=== PATIENT | male | born 2000 | race Caucasian/White ===

== ENCOUNTER 2018-06-08 04:08 | Emergency (ER) | payer OTHER ==
[2018-06-08 04:15] VITALS: BP 132/84
[2018-06-08] MEDS ORDERED: PENICILLIN V POTASSIUM 500 MG TABLET PO ONE (04:31)
--- NOTE | 2018-06-08 04:33 | ER Document Report ---
ED General - General Chief Complaint: Sore Throat Stated Complaint: SORE THROAT Time Seen by Provider: 06/08/18 04:24 Notes: Patient is a 17-year-old male presents with complaint of a sore throat. He says he has also had some fevers over last 24 hours. He has some pressure behind his left ear as well. He says his girlfriend was recently sick but not sure with what. He denies abdominal pain or vomiting. No neck stiffness. No other complaints. No difficulty breathing or swallowing. - Related Data Allergies/Adverse Reactions: No Known Allergies Allergy (Unverified 06/08/18 04:10) Past Medical History - Social History Smoking Status: Unknown if Ever Smoked Frequency of alcohol use: None Drug Abuse: None Family History: Reviewed & Not Pertinent Patient has suicidal ideation: No Patient has homicidal ideation: No Renal/ Medical History: Denies: Hx Peritoneal Dialysis Review of Systems - Review of Systems Notes: My Normal Review Basic REVIEW OF SYSTEMS: CONSTITUTIONAL : Fever. EENT: Sore throat RESPIRATORY: Denies cough, cold, or chest congestion. Denies shortness of breath, difficulty breathing, or wheezing. GASTROINTESTINAL: Denies abdominal pain. Denies nausea, vomiting, or diarrhea. MUSCULOSKELETAL: Denies neck or back pain or joint pain or swelling. SKIN: Denies rash or skin lesions. NEUROLOGICAL: Denies altered mental status or loss of consciousness. Denies headache. ALL OTHER SYSTEMS REVIEWED AND NEGATIVE. Physical Exam - Vital signs Vitals: Temp Pulse Resp BP Pulse Ox 100.5 F H 95 H 14 132/84 H 100 06/08/18 04:14 06/08/18 04:14 06/08/18 04:14 06/08/18 04:14 06/08/18 04:14 - Notes Notes: General Appearance: Well nourished, alert, cooperative, no acute distress, mild obvious discomfort. Patient speaks well without hoarse voice. He is able secretions well without any signs of difficulty swallowing or airway compromise. Vitals: reviewed, See vital signs table. Head: no swelling or tenderness to the head Eyes: PERRL, EOMI, Conjuctiva clear Mouth: No decreasd moisture Throat: Bilateral tonsillar inflammation and erythema with exudates along the left tonsil. Uvula is midline. No peritonsillar swelling. Neck: Supple, no neck tenderness, No thyromegaly Lungs: No wheezing, No rales, No rhonci, No accessory muscle use, good air exchange bilaterally. Heart: Normal rate, Regular rythm, No murmur, no rub Skin: warm, dry, appropriate color, no rash Neuro: speech clear, oriented x 3, normal affect, responds appropriately to questions. Course - Re-evaluation Re-evalutation: 06/08/18 06:52 Patient's findings consistent with strep pharyngitis. I have prescribed penicillin. I talked him at length about peritonsillar abscess. Currently has no evidence of peritonsillar abscess but informed him of the signs and symptoms of this and to return to ER immediately if he has any symptoms or signs. Patient agrees with plan will be discharged home. Dictation of this chart was performed using voice recognition software; therefore, there may be some unintended grammatical errors. - Vital Signs Vital signs: Temp Pulse Resp BP Pulse Ox 100.5 F H 95 H 14 132/84 H 100 06/08/18 04:14 06/08/18 04:14 06/08/18 04:14 06/08/18 04:14 06/08/18 04:14 Discharge - Discharge Clinical Impression: Pharyngitis Qualifiers: Pharyngitis/tonsillitis etiology: unspecified etiology Qualified Code(s): J02.9 - Acute pharyngitis, unspecified Condition: Good Disposition: HOME, SELF-CARE Instructions: Penicillin V K ([facility]) Additional Instructions: Sometimes people with strep throat will go on to develop something called a peritonsillar abscess. This will be swelling above your tonsil causing the uvula (hangy ball in the back of your throat) to shift to one side of your throat. If you develop these symptoms you must return to the ER immediately as this requires a different kind of treatment. Also please return to the ER immediately for difficulty breathing, difficulty swallowing, or if you have any further concerns that you are worsening. Prescriptions: Penicillin V Potassium [Penicillin Vk 500 mg Tablet] 500 mg PO BID #19 tablet Forms: Return to Work
== END 2018-06-08 04:38 | disposition home or self-care (01) ==
LOC: ER 04:08
DX: J02.9 Acute pharyngitis, unspecified (principal); R50.9 Fever, unspecified
CPT/HCPCS: 99282